=== PATIENT | female | born 1980 | race African-American/Black ===

== ENCOUNTER 2019-08-18 16:34 | Emergency (ER) | payer MEDICAID, OTHER ==
[2019-08-18 17:10] VITALS: BP 146/80
[2019-08-18] MEDS ORDERED: CLINDAMYCIN 600 MG/D5W RTU 600 MG/50 ML RTUPB IV ONE (18:02)
--- NOTE | 2019-08-18 18:05 | ER Document Report ---
ED Medical Screen (RME) - General Chief Complaint: Skin Problem Stated Complaint: POSSIBLE SPIDER BITE ON RIGHT HAND Time Seen by Provider: 08/18/19 17:49 Mode of Arrival: Ambulatory Information source: Patient Notes: Patient is a 30-year-old female presenting to the emergency department with complaints of possible insect bite. Patient reports she believes she was bitten sometime yesterday. She reports that she now has a red streak going up her arm from her right hand. She denies any fevers but reports limited range of motion to the right hand and limited strength. I have greeted and performed a rapid initial assessment of this patient. A comprehensive ED assessment and evaluation of the patient, analysis of test results and completion of the medical decision making process will be conducted by additional ED providers. I have specifically instructed the patient or family members with the patient to immediately return to any nursing staff should anything change in the patient's condition or with their chief complaint. This medical record was dictated with voice recognizing software. There may be grammatical, syntax errors that are unintended. TRAVEL OUTSIDE OF THE [place] IN LAST 30 DAYS: No - Related Data Allergies/Adverse Reactions: No Known Drug Allergies Allergy (Verified 08/18/19 17:32) Past Medical History - Social History Chew tobacco use (# tins/day): No Frequency of alcohol use: Occasional Drug Abuse: None Pulmonary Medical History: Reports: Hx Asthma - Immunizations Hx Diphtheria, Pertussis, Tetanus Vaccination: Yes Physical Exam - Vital signs Vitals: Temp Pulse Resp BP Pulse Ox 98.3 F 71 18 146/80 H 98 08/18/19 17:08 08/18/19 17:08 08/18/19 17:08 08/18/19 17:08 08/18/19 17:08 Course - Vital Signs Vital signs: Temp Pulse Resp BP Pulse Ox 98.3 F 71 18 146/80 H 98 08/18/19 17:08 08/18/19 17:08 08/18/19 17:08 08/18/19 17:08 08/18/19 17:08
[2019-08-18 18:52] LABS: ABSOLUTE BASOPHILS # (AUTO) 0.2 10^3/uL (0.0-0.2); ABSOLUTE EOSINOPHILS # (AUTO) 0.8 10^3/uL (0.0-0.6); ABSOLUTE LYMPHOCYTES (AUTO) 4.2 10^3/uL (0.5-4.7); ABSOLUTE MONOCYTES (AUTO) 0.9 10^3/uL (0.1-1.4); ABSOLUTE NEUT (AUTO) 8.8 10^3/uL (1.7-8.2); EOSINOPHILS % (AUTO) 5.2 % (0-6); HEMATOCRIT 26.8 % (36.0-47.0); LYMPHOCYTES % (AUTO) 28.5 % (13-45); MEAN CORPUSCULAR HEMOGLOBIN 14.7 pg (27.0-33.4); MEAN CORPUSCULAR HGB CONC 28.6 g/dL (32.0-36.0); MONOCYTES % (AUTO) 6.2 % (3-13); PLATELET COUNT 298 10^3/uL (150-450); RED BLOOD COUNT 5.24 10^6/uL (3.72-5.28); RED CELL DISTRIBUTION WIDTH 20.2 % (11.5-14.0); SEGMENTED NEUTROPHILS % (AUTO) 59.1 % (42-78); TOTAL CELLS COUNTED % (AUTO) 100 %; WHITE BLOOD COUNT 14.9 10^3/uL (4.0-10.5)
[2019-08-18 18:58] LABS: HEMOGLOBIN 7.7 g/dL (12.0-15.5)
[2019-08-18 19:13] LABS: ALBUMIN 4.2 g/dL (3.5-5.0); ALKALINE PHOSPHATASE 84 U/L (38-126); ANION GAP 9 (5-19); ASPARTATE AMINO TRANSFERASE 24 U/L (14-36); BILIRUBIN,DIRECT 0.1 mg/dL (0.0-0.4); BILIRUBIN,TOTAL 0.3 mg/dL (0.2-1.3); BLOOD UREA NITROGEN 13 mg/dL (7-20); C-REACTIVE PROTEIN 6.3 mg/L (<10.0); CALCIUM 9.4 mg/dL (8.4-10.2); CARBON DIOXIDE 24 mmol/L (22-30); CHLORIDE 104 mmol/L (98-107); GLUCOSE 98 mg/dL (75-110); POTASSIUM 4.2 mmol/L (3.6-5.0); TOTAL PROTEIN 7.7 g/dL (6.3-8.2)
[2019-08-18 19:22] LABS: ANISOCYTOSIS 3+; HYPOCHROMASIA 2+; OVALOCYTES SLIGHT; PLATELET COMMENT ADEQUATE; POIKILOCYTOSIS 1+; SCHISTOCYTES SLIGHT; TARGET CELLS 1+
[2019-08-18 19:23] LABS: MEAN CORPUSCULAR VOLUME 51 fl (80-97)
[2019-08-18 19:35] LABS: ERYTHROCYTE SEDIMENTATION RATE 13 mm/hr (0-20)
--- NOTE | 2019-08-18 23:08 | ER Document Report ---
ED Skin Rash/Insect Bite/Abscs - General Chief Complaint: Skin Problem Stated Complaint: POSSIBLE SPIDER BITE ON RIGHT HAND Time Seen by Provider: 08/18/19 17:49 Mode of Arrival: Ambulatory TRAVEL OUTSIDE OF THE [place] IN LAST 30 DAYS: No - HPI Patient complains to provider of: Skin rash/lesion, Tender/swollen area Onset: Yesterday Onset/Duration: Sudden, Gradual Quality of pain: Achy. denies: No pain, Burning, Cramping, Dull, Fullness, Pressure, Sharp, Stabbing, Throbbing, Other Severity: Mild Skin Character: Erythema, Patchy, Warm Identify cause: No Medication exposure: denies: Antibiotic, Aspirin, EDGARD / ARB inhibitor, NSAID, Other Food exposure: denies: Shellfish, Nuts, Soybeans, Eggs, Other Exacerbated by: denies: Denies, Supine, Sitting, Standing, Movement, Walking, Coughing, Deep breathing, Food, Other Notes: Patient claims yesterday that she noticed on her right dorsal surface of her right hand a small blister starting thinks she was bitten by something as they were fumigating her office since that time she has noticed red streaks up her arm to approximately the elbow crease and came in. She denies any other complaints - Related Data Allergies/Adverse Reactions: No Known Drug Allergies Allergy (Verified 08/18/19 17:32) Past Medical History - General Information source: Patient - Social History Smoking Status: Current Some Day Smoker Chew tobacco use (# tins/day): No Frequency of alcohol use: Occasional Drug Abuse: None Family History: None Patient has suicidal ideation: No Patient has homicidal ideation: No Pulmonary Medical History: Reports: Hx Asthma - Immunizations Hx Diphtheria, Pertussis, Tetanus Vaccination: Yes Hx Pneumococcal Vaccination: 08/02/14 Review of Systems - Review of Systems Constitutional: denies: No symptoms reported, See HPI, Chills, Diaphoresis, Fever, Malaise, Weakness, Other, Weight gain, Weight loss, Recent illness Skin: See HPI, Change in color, Rash. denies: No symptoms reported, Change in hair/nails, Dryness, Lesions, Lumps, Other -: Yes All other systems reviewed and negative Physical Exam - Vital signs Vitals: Temp Pulse Resp BP Pulse Ox 98.3 F 71 18 146/80 H 98 08/18/19 17:08 08/18/19 17:08 08/18/19 17:08 08/18/19 17:08 08/18/19 17:08 Notes: PHYSICAL EXAMINATION: GENERAL: Well-appearing, well-nourished and in no acute distress. HEAD: Atraumatic, normocephalic. EYES: Pupils equal round and reactive to light, extraocular movements intact, sclera anicteric, conjunctiva are normal. ENT: nares patent, oropharynx clear without exudates. Moist mucous membranes. NECK: Normal range of motion, supple without lymphadenopathy LUNGS: Breath sounds clear to auscultation bilaterally and equal. No wheezes rales or rhonchi. HEART: Regular rate and rhythm without murmurs ABDOMEN: Soft, nontender, normoactive bowel sounds. No guarding, no rebound. No masses appreciated. EXTREMITIES: Normal range of motion, no pitting or edema. No cyanosis. NEUROLOGICAL: No focal neurological deficits. Moves all extremities spontaneously and on command. PSYCH: Normal mood, normal affect. SKIN: Right dorsal surface of the hand near the thumb there is a small clear vesicle with surrounding erythema up the arm there is lymphangitis to the elbow. There are no axillary lymph nodes. Patient hair all of her fingers including the thumb no pain to passive motion of the thumb or fingers no pain to palp to flexion extension at the elbow Course - Vital Signs Vital signs: Temp Pulse Resp BP Pulse Ox 98.3 F 71 18 146/80 H 98 08/18/19 17:08 08/18/19 17:08 08/18/19 17:08 08/18/19 17:08 08/18/19 17:08 - Laboratory Result Diagrams: 08/18/19 18:32 08/18/19 18:32 Laboratory results interpreted by me: 08/18/19 08/18/19 18:32 18:32 WBC 14.9 H Hgb 7.7 L Hct 26.8 L MCV 51 L MCH 14.7 L MCHC 28.6 L RDW 20.2 H Absolute Neuts (auto) 8.8 H Absolute Eos (auto) 0.8 H Sodium 136.6 L - Transfer of Care Notes: 08/18/19 23:05 Patient is a healthy nondiabetic female did receive prior to me so seeing her from triage some clindamycin IV and claims the redness is even gotten better and the pain is gotten better. I will send her home with some Keflex and Bactrim and also some Depauw for pain and have her follow-up tomorrow for 12-hour follow- up with regular doctor or return here or if she is worse before then. Discharge - Discharge Clinical Impression: Right arm cellulitis Condition: Stable Disposition: HOME, SELF-CARE Instructions: Cellulitis ([facility]) Additional Instructions: Medicines as directed follow-up in the 12 hours for recheck here in the emergency department or with your regular doctor as discussed or sooner if worse Prescriptions: Sulfamethoxazole/Trimethoprim [Bactrim Ds Tablet] 1 each PO Q12 #14 tablet Cephalexin Monohydrate [Keflex 500 mg Capsule] 500 mg PO Q6H #28 capsule Hydrocodone/Acetaminophen [Depauw 5-325 Tablet] 1 each PO Q6 PRN #10 tablet PRN Reason: Pain Scale Of 4 Forms: Parent Work Note
[2019-08-18] MEDS ORDERED: ONDANSETRON HCL INJ/PF 4 MG/2 ML SDV IV ONE (23:52)
[2019-08-18] MEDS ORDERED: HYDROMORPHONE HCL INJ/PF 2 MG/ML AMPULE IV ONE (23:52)
[2019-08-19 13:32] LABS: PATH REVIEW PATHOLOGIST REVIEWED
== END 2019-08-19 00:04 | disposition home or self-care (01) ==
LOC: ER 16:34
DX: L03.113 Cellulitis of right upper limb (principal); F17.200 Nicotine dependence, unspecified, uncomplicated
CPT/HCPCS: 36415; 87040; 85025; 85652; 86140; 80053; J1170; J2405; 96365; 96375; 99283

== ENCOUNTER 2019-09-07 07:54 | Emergency (ER) | payer SELFPAY ==
--- NOTE | 2019-09-07 09:38 | ER Document Report ---
HPI - HPI Patient complains to provider of: Right hand insect bite Time Seen by Provider: 09/07/19 09:15 Onset: Yesterday Onset/Duration: Persistent Quality of pain: Achy Severity: Severe Pain Level: 5 Context: This 38-year-old female presents emergency department with insect bite to her right hand. 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 Patient does not remember getting bit by anything. She reports she did take Benadryl. She woke up this morning she has a large blister to the area. Denies fever vomiting diarrhea. Right dorsal hand is slightly swollen. Associated Symptoms: None Exacerbated by: Denies Relieved by: Denies Similar symptoms previously: No Recently seen / treated by doctor: No - CONSTITUTIONAL Constitutional: DENIES: Fever, Chills - REPRODUCTIVE Reproductive: DENIES: : Past Medical History - General Information source: Patient Last Menstrual Period: Current - Social History Smoking Status: Never Smoker Chew tobacco use (# tins/day): No Frequency of alcohol use: None Drug Abuse: None Occupation: Childcare Family History: None Patient has suicidal ideation: No Patient has homicidal ideation: No Pulmonary Medical History: Reports: Hx Asthma Surgical Hx: Negative - Immunizations Hx Diphtheria, Pertussis, Tetanus Vaccination: Yes Hx Pneumococcal Vaccination: 08/02/14 Vertical Provider Document - CONSTITUTIONAL Agree With Documented VS: Yes Exam Limitations: No Limitations General Appearance: WD/WN, No Apparent Distress - INFECTION CONTROL TRAVEL OUTSIDE OF THE [place] IN LAST 30 DAYS: No - HEENT HEENT: Atraumatic, Normocephalic - NECK Neck: Supple - RESPIRATORY Respiratory: No Respiratory Distress - CARDIOVASCULAR Cardiovascular: Regular Rate - MUSCULOSKELETAL/EXTREMETIES Musculoskeletal/Extremeties: MAEW, FROM, Tender - Right dorsal hand fourth and fifth metacarpals with blister surrounded by erythema approximately 2 cm. No induration no fluctuance no pustule. - NEURO Level of Consciousness: Awake, Alert, Appropriate Motor/Sensory: No Motor Deficit - DERM Integumentary: Warm, Dry Adult Front & Back Diagram: 1 - Blister surrounded by erythema. Approximately 2 cm. No induration no pustule no fluctuance. Course - Re-evaluation Re-evalutation: 09/07/19 19:21 88-year-old female presents to the emergency department with insect bite to her right dorsal hand. Patient was instructed on signs and symptoms of abscess. She was treated with Keflex prophylactically. She was instructed on Benadryl ice packs. She verbalized understanding to all instructions. The area was marked with a surgical marker. She was instructed to monitor the site and return if the erythema was larger than the marked area. She verbalized understanding to all instruction. - Vital Signs Vital signs: Temp Pulse Resp BP Pulse Ox 98.7 F 66 16 136/76 H 100 09/07/19 07:59 09/07/19 07:59 09/07/19 07:59 09/07/19 07:59 09/07/19 07:59 Discharge - Discharge Clinical Impression: Insect bite Qualifiers: Encounter type: initial encounter Site of insect bite: hand Laterality: right Qualified Code(s): S60.561A - Insect bite (nonvenomous) of right hand, initial encounter Condition: Stable Disposition: HOME, SELF-CARE Instructions: Cephalexin ([facility]), Use of Diphenhydramine, Insect Bites ([facility]), Swollen Insect Bite or Sting ([facility]) Additional Instructions: *You have been treated for insect bite *Take medication as prescribed, take Benadryl as indicated *Monitor the site for signs of infection such as increasing pain, redness, swelling, warmth *Apply cool packs as indicated *Follow up with a primary care provider in 5 days *Return to ED for signs of infection, worsening condition, changes, needs Monitor your blood pressure. Your blood pressure was elevated today. This may be because you were anxious, in pain or because you need medication. It is important to follow up with your primary care provider for full evaluation. Prescriptions: Cephalexin Monohydrate [Keflex 250 Mg Capsule] 250 mg PO QID #20 capsule Forms: Elevated Blood Pressure, Return to Work
[2019-09-07 09:48] VITALS: BP 144/87
== END 2019-09-07 09:51 | disposition home or self-care (01) ==
LOC: ER 07:54
DX: S60.561A Insect bite (nonvenomous) of right hand, initial encounter (principal); W57.XXXA Bitten or stung by nonvenomous insect and other nonvenomous arthropods, initial encounter
CPT/HCPCS: 99282